=== PATIENT | female | born 2000 | race Caucasian/White ===

== ENCOUNTER 2021-04-15 06:22 | Emergency (ER) | payer OTHER ==
[~2021-04-15] VITALS: Ht 157.5 cm; Wt 54.5 kg
[2021-04-15 08:17] VITALS: BP 110/68
== END 2021-04-15 08:19 | disposition home or self-care (01) ==
LOC: EMS 06:27 → EDSEX 06:27 → EMS 08:19
DX: S80.261A Insect bite (nonvenomous), right knee, initial encounter (principal); S90.561A Insect bite (nonvenomous), right ankle, initial encounter; S90.562A Insect bite (nonvenomous), left ankle, initial encounter; W57.XXXA Bitten or stung by nonvenomous insect and other nonvenomous arthropods, initial encounter; Y93.89 Activity, other specified; Y92.89 Other specified places as the place of occurrence of the external cause; Y99.8 Other external cause status
CPT/HCPCS: 99283; Z7502

== ENCOUNTER 2021-05-18 09:21 | Emergency (ER) | payer OTHER ==
[~2021-05-18] VITALS: Ht 157.5 cm; Wt 50.9 kg
[2021-05-18] MEDS ORDERED: IBUPROFEN 400 MG TABLET PO ONE (10:30)
[2021-05-18] MEDS ORDERED: DEXAMETHASONE SOD PHOS 4 MG/ML 5 ML VIAL IM ONE (10:30)
[2021-05-18 12:42] VITALS: BP 114/78
== END 2021-05-18 13:34 | disposition home or self-care (01) ==
LOC: EMS 09:30
DX: J02.8 Acute pharyngitis due to other specified organisms (principal); B97.89 Other viral agents as the cause of diseases classified elsewhere
CPT/HCPCS: 87110; 87430; 96372; 99283; J1100